=== PATIENT | female | born 2000 | race Caucasian/White ===

== ENCOUNTER 2019-08-29 15:32 | Outpatient (CLI) | payer BC ==
--- NOTE | 2019-08-29 16:34 | RAD ---
Right foot 3 views HISTORY: Right foot pain. Injury. FINDINGS: Lisfranc joint alignment is anatomic. Plantar arch is maintained. No acute fracture, dislocation, or aggressive osseous erosions. IMPRESSION : No abnormalities are demonstrated.
== END 2019-08-29 15:33 | disposition home or self-care (01) ==
LOC: SCSRAD 15:32
PROVIDERS: ATTEND Nurse Practitioner Family
DX: M79.671 Pain in right foot (principal)